=== PATIENT | male | born 1980 | race African-American/Black ===

== ENCOUNTER 2019-01-15 20:28 | Emergency (ER) | payer OTHER ==
[~2019-01-15] VITALS: Ht 180.3 cm; Wt 89.1 kg
[2019-01-15] MEDS ORDERED: PROPOFOL 200 MG/20 ML VIAL As Ordered ONE (21:23)
[2019-01-15] MEDS ORDERED: PROPOFOL 200 MG/20 ML VIAL IV ONE (21:30)
[2019-01-15] MEDS ORDERED: NS 1,000 ML IV SCH (21:30)
[2019-01-15 21:48] VITALS: BP 131/77
[2019-01-15] MEDS ORDERED: IBUP-1022 PO (22:24)
[2019-01-15] MEDS ORDERED: NORCO 5/325MG TABLET (BULK FOR ED) PO ONE (22:30)
--- NOTE | 2019-01-16 07:47 | REP ---
Clinical: Status post reduction. Technique: Portable AP view of the right shoulder. Findings: Satisfactory reduction noted. No acute fracture identified. Impression: Satisfactory reduction. Electronically Signed by Reza Doe MD 01/16/2019 07:39 A
--- NOTE | 2019-01-16 07:51 | REP ---
Clinical: Trauma. Pain. Technique: AP and Y view of the right shoulder. Findings: Anteroinferior glenohumeral joint dislocation noted. No obvious acute fracture. Impression: Anteroinferior glenohumeral joint dislocation. Electronically Signed by Reza Doe MD 01/16/2019 07:43 A
== END 2019-01-15 22:57 | disposition home or self-care (01) ==
LOC: M ED 20:28
DX: S43.101A Unspecified dislocation of right acromioclavicular joint, initial encounter (principal); W19.XXXA Unspecified fall, initial encounter; Y92.138 Other place on military base as the place of occurrence of the external cause; Y93.9 Activity, unspecified; Y99.1 Military activity